=== PATIENT | female | born 1970 | race Caucasian/White ===

== ENCOUNTER 2023-08-12 16:56 | Inpatient (IN) | payer MEDICARE, OTHER ==
[~2023-08-12] VITALS: Ht 170.2 cm; Wt 161.5 kg
[2023-08-12 18:39] LABS: BASOPHILS % (AUTO) 0.5 % (0.0-2.0); EOSINOPHILS # (AUTO) 0.2 K/uL (0.0-0.7); EOSINOPHILS % (AUTO) 3.2 % (0.0-6.0); HEMATOCRIT 36 % (33-45); HEMOGLOBIN 11.9 g/dL (11.5-14.8); LYMPHOCYTES # (AUTO) 1.6 K/uL (0.8-4.8); MEAN CORPUSCULAR HEMOGLOBIN 27 PG (26.0-33.0); MEAN CORPUSCULAR HGB CONC 33 g/dl (31.0-36.0); MEAN CORPUSCULAR VOLUME 84 fL (82-100); MONOCYTES # (AUTO) 0.5 K/uL (0.1-1.30); MONOCYTES % (AUTO) 7.9 % (2.0-12.0); NEUTROPHILS # (AUTO) 4.4 K/uL (1.8-8.9); NEUTROPHILS % (AUTO) 65.4 % (43.0-81.0); PLATELET COUNT (AUTO) 221 K/uL (150-450); RED BLOOD CELL COUNT(AUTO) 4.33 MIL/uL (4.0-5.2); WHITE BLOOD COUNT (AUTO) 6.7 K/uL (4.3-11.0)
[2023-08-12 18:53] LABS: CALCIUM, SERUM 9.1 mg/dL (8.5-10.1); CARBON DIOXIDE 36 mmol/L (21-32); CHLORIDE 96 mmol/L (98-107); CREATININE 0.8 mg/dL (0.6-1.3); GLUCOSE 101 mg/dL (74-106); POTASSIUM 3.9 mmol/L (3.5-5.1); SODIUM SERUM 138 mmol/L (136-145); UREA NITROGEN, BLOOD 13 mg/dL (7-18)
[2023-08-12] MEDS ORDERED: LINA72CA PO (18:56)
[2023-08-12] MEDS ORDERED: DICL100G34 TP (18:56)
[2023-08-12] MEDS ORDERED: VENL75CA62 PO (18:56)
[2023-08-12] MEDS ORDERED: LIOT5TAB11 PO (18:56)
[2023-08-12] MEDS ORDERED: LORA-259 PO (18:56)
[2023-08-12] MEDS ORDERED: DOCU100C36 PO (18:56)
[2023-08-12] MEDS ORDERED: FLUT16SP NS (18:56)
[2023-08-12] MEDS ORDERED: BISA10SU11 RC (18:56)
[2023-08-12] MEDS ORDERED: BISA5TAB10 PO (18:56)
[2023-08-12] MEDS ORDERED: NA P133E RC (18:56)
[2023-08-12] MEDS ORDERED: BENZ1TAB7 PO (18:56)
[2023-08-12] MEDS ORDERED: CHOL500062 PO (18:56)
[2023-08-12] MEDS ORDERED: OMEG-167 PO (18:56)
[2023-08-12] MEDS ORDERED: BUPR2TAB3 SL (18:56)
[2023-08-12] MEDS ORDERED: IBUP-1955 PO (18:56)
[2023-08-12] MEDS ORDERED: ATOR40TA PO (18:56)
[2023-08-12] MEDS ORDERED: LEVO150T8 PO (18:56)
[2023-08-12] MEDS ORDERED: LACT10SO29 PO (18:56)
[2023-08-12] MEDS ORDERED: ACET325T53 PO (18:56)
[2023-08-12] MEDS ORDERED: MAGN400O6 PO (18:56)
[2023-08-12] MEDS ORDERED: DIPH50CA4 PO (18:56)
[2023-08-12] MEDS ORDERED: POLY15DR40 EACHEYE (18:56)
[2023-08-12] MEDS ORDERED: FURO40TA5 PO (18:56)
[2023-08-12] MEDS ORDERED: ESZO1TAB11 PO (18:56)
[2023-08-12] MEDS ORDERED: LIDO1ADH82 TP (18:56)
[2023-08-12] MEDS ORDERED: PANT40TA2 PO (18:57)
[2023-08-12] MEDS ORDERED: CARB50DR EACHEYE (18:57)
[2023-08-12] MEDS ORDERED: POTA-88 PO (18:57)
[2023-08-12] MEDS ORDERED: MUPI22OI7 MC (18:57)
[2023-08-12] MEDS ORDERED: OLAN5TAB3 PO (18:57)
[2023-08-12] MEDS ORDERED: NALT50TA PO (18:57)
[2023-08-12] MEDS ORDERED: QUET100T PO (18:57)
[2023-08-12] MEDS ORDERED: PREG-59 PO (18:57)
[2023-08-12] MEDS ORDERED: ALBU18HF2 IH (18:57)
[2023-08-12] MEDS ORDERED: SENN-261 PO (18:57)
[2023-08-12] MEDS ORDERED: PROP20TA7 PO (18:57)
[2023-08-12] MEDS ORDERED: TIZA4TAB5 PO (18:57)
[2023-08-12 18:58] LABS: ALANINE AMINOTRANSFERASE 20 U/L (12-78); ALBUMIN 3.6 g/dL (3.4-5.0); ALCOHOL, BLOOD < 3 mg/dL (0-10); ALKALINE PHOSPHATASE 136 U/L (46-116); ASPARTATE AMINOTRANSFERASE 12 U/L (15-37); BILIRUBIN,DIRECT 0.1 mg/dL (0.0-0.2); BILIRUBIN,TOTAL 0.2 mg/dL (0.2-1.0); SALICYLATE 3.2 mg/dL (2.8-20.0)
[2023-08-12 19:05] LABS: ACETAMINOPHEN 0 ug/ml (10-30)
[2023-08-12 19:56] LABS: APPEARANCE,URINE CLEAR (CLEAR); BILIRUBIN,URINE NEGATIVE (NEGATIVE); BLOOD, URINE NEGATIVE Ery/uL (NEGATIVE); COLOR,URINE YELLOW (YELLOW); KETONES,URINE NEGATIVE (NEGATIVE); LEUKOCYTE ESTERASE ,URINE NEGATIVE (NEGATIVE); NITRITE, URINE NEGATIVE (NEGATIVE); PROTEIN,URINE NEGATIVE (NEGATIVE); UGLUCOSE NEGATIVE (NEGATIVE); UROBILINOGEN,URINE 0.2 EU/dL (0.2)
[2023-08-12 20:10] LABS: AMPHETAMINE, URINE NEGATIVE (NEGATIVE); BARBITURATE, URINE NEGATIVE (NEGATIVE); BENZODIAZEPINE, URINE NEGATIVE (NEGATIVE); CANNABINOID, URINE NEGATIVE (NEGATIVE); COCCAINE, URINE NEGATIVE (NEGATIVE); OPIATE, URINE NEGATIVE (NEGATIVE); PHENCYCLIDINE SCREEN,URINE NEGATIVE (NEGATIVE)
[2023-08-12] MEDS ORDERED: ACETAMINOPHEN ES 500 MG TABLET ONE (21:20)
[2023-08-12] MEDS: ACETAMINOPHEN ES 500 MG TABLET PO ONE (21:23)
[2023-08-12] MEDS ORDERED: OLANZAPINE ZYDIS 5 MG TAB.RAPDIS ONE (23:59)
[2023-08-13] MEDS: OLANZAPINE 5 MG TABLET PO ONE (00:05)
[2023-08-13] MEDS: OLANZAPINE ZYDIS 5 MG TAB.RAPDIS PO ONE (00:05)
[2023-08-13] MEDS ORDERED: QUETIAPINE FUMARATE 100 MG TABLET ONE (01:13)
[2023-08-13] MEDS: QUETIAPINE FUMARATE 100 MG TABLET PO SCH ×2 (01:20→16:34)
[2023-08-13] MEDS ORDERED: MAG HYDROX/AL HYDROX/SIMETH 30 ML UDC PO PRN (16:00)
[2023-08-13] MEDS ORDERED: ALBUTEROL FS 2.5 MG/3 ML VIAL.NEB NEB PRN (16:00)
[2023-08-13] MEDS ORDERED: ACETAMINOPHEN 325 MG TABLET PO PRN (16:00)
[2023-08-13] MEDS ORDERED: Z GUARD REMEDY 4 OZ OINT TP PRN (16:00)
[2023-08-13] MEDS ORDERED: ONDANSETRON HCL/PF 4 MG/2 ML VIAL IVP PRN (16:00)
[2023-08-13 16:01] VITALS: BP 133/78; TEMP 98.3; O2SAT 100
[2023-08-13] MEDS: IV NS 0.9% 1,000 ML IV PRN (16:06)
[2023-08-13] MEDS: BENZTROPINE MESYLATE (1 MG) 1 MG TABLET PO SCH (16:33)
[2023-08-13] MEDS: SENNOSIDES 8.6 MG TABLET PO SCH (16:33)
[2023-08-13] MEDS: ENOXAPARIN SODIUM 40 MG/0.4 ML DISP.SYRIN SQ SCH (16:33)
[2023-08-13] MEDS: PREGABALIN 100 MG CAPSULE PO SCH (16:33)
[2023-08-13] MEDS: OXCARBAZEPINE 150 MG TABLET PO SCH (16:34)
[2023-08-13] MEDS: LIOTHYRONINE SODIUM (5 MCG/TA 5 MCG TABLET PO SCH (16:34)
[2023-08-13] MEDS ORDERED: BENZTROPINE MESYLATE (1 MG) 1 MG TABLET PO SCH (17:00)
[2023-08-13] MEDS ORDERED: QUETIAPINE FUMARATE 100 MG TABLET PO SCH (17:00)
[2023-08-13] MEDS: IBUPROFEN 600 MG TABLET PO PRN (17:16)
[2023-08-13 20:00] VITALS: BP 117/72; TEMP 99; O2SAT 99
[2023-08-13] MEDS ORDERED: OLANZAPINE 5 MG TABLET PO SCH (21:00)
[2023-08-13] MEDS: ATORVASTATIN 40 MG TABLET PO SCH (21:08)
[2023-08-13] MEDS: TIZANIDINE HCL 4 MG TABLET PO SCH (21:08)
[2023-08-13] MEDS: OLANZAPINE 5 MG TABLET PO SCH (21:09)
[2023-08-13] MEDS: LORAZEPAM 1 MG TABLET PO PRN (21:19)
[2023-08-13] MEDS ORDERED: TEMAZEPAM 7.5 MG CAPSULE ONE (23:43)
[2023-08-13] MEDS: TEMAZEPAM 15 MG CAPSULE PO PRN (23:57)
[2023-08-14 04:00] VITALS: BP 122/73; TEMP 98.4; O2SAT 96
[2023-08-14 07:14] LABS: BASOPHILS % (AUTO) 0.8 % (0.0-2.0); EOSINOPHILS # (AUTO) 0.2 K/uL (0.0-0.7); EOSINOPHILS % (AUTO) 3.7 % (0.0-6.0); HEMATOCRIT 34 % (33-45); HEMOGLOBIN 10.8 g/dL (11.5-14.8); LYMPHOCYTES # (AUTO) 1.5 K/uL (0.8-4.8); LYMPHOCYTES % (AUTO) 32.3 % (20.0-44.0); MEAN CORPUSCULAR HEMOGLOBIN 27 PG (26.0-33.0); MEAN CORPUSCULAR HGB CONC 32 g/dl (31.0-36.0); MEAN CORPUSCULAR VOLUME 85 fL (82-100); MONOCYTES # (AUTO) 0.5 K/uL (0.1-1.30); MONOCYTES % (AUTO) 10.6 % (2.0-12.0); NEUTROPHILS # (AUTO) 2.4 K/uL (1.8-8.9); NEUTROPHILS % (AUTO) 52.6 % (43.0-81.0); PLATELET COUNT (AUTO) 201 K/uL (150-450); RED BLOOD CELL COUNT(AUTO) 3.99 MIL/uL (4.0-5.2); RED CELL DISTRIBUTION WIDTH 17.4 % (11.5-15.0); WHITE BLOOD COUNT (AUTO) 4.7 K/uL (4.3-11.0)
[2023-08-14 07:30] LABS: CALCIUM, SERUM 8.9 mg/dL (8.5-10.1); CREATININE 0.8 mg/dL (0.6-1.3); MAGNESIUM 2.2 mg/dL (1.8-2.4); PHOSPHORUS 4.2 mg/dL (2.5-4.9); POTASSIUM 3.6 mmol/L (3.5-5.1)
[2023-08-14 08:00] VITALS: BP 123/60; TEMP 98.2; O2SAT 96
[2023-08-14] MEDS: PANTOPRAZOLE 40 MG TABLET.DR PO SCH (08:24)
[2023-08-14] MEDS ORDERED: VENLAFAXINE XR 75 MG CAP.SR.24H PO SCH (09:00)
[2023-08-14] MEDS: PROPRANOLOL HCL 10 MG TABLET PO SCH (09:49)
[2023-08-14] MEDS: MAGNESIUM HYDROXIDE 30 ML UDC PO ONE (10:29)
[2023-08-14 16:00] VITALS: BP 138/100; TEMP 98.1; O2SAT 96
[2023-08-14] MEDS ORDERED: HYDROCODONE/APAP 7.5/325MG 1 EACH TABLET PO PRN (16:00)
[2023-08-14] MEDS: LACTULOSE 10 G/15 ML UDC (PYXIS) PO SCH (16:07)
[2023-08-14 19:39] VITALS: O2SAT 93
[2023-08-15] VITALS: BP 122/64; TEMP 97.9; O2SAT 94
[2023-08-15] MEDS: TEMAZEPAM 7.5 MG CAPSULE PO PRN (00:01)
[2023-08-15 08:00] VITALS: BP 146/85; TEMP 97.7; O2SAT 97
[2023-08-15] MEDS: POLYVINYL ALCOHOL 15 ML BOTTLE EACHEYE PRN (08:29)
[2023-08-15] MEDS: HYDROCODONE/APAP 5/325MG TABLET PO PRN (12:37)
[2023-08-15] MEDS: FLUTICASONE PROPIONATE 16 GM BOTTLE NS PRN (12:53)
[2023-08-15 16:00] VITALS: BP 126/60; TEMP 97.5; O2SAT 97
[2023-08-15] MEDS: MAGNESIUM HYDROXIDE 30 ML UDC PO PRN (16:01)
[2023-08-15 18:11] VITALS: O2SAT 97
[2023-08-15 20:00] VITALS: BP 119/72; TEMP 98.2; O2SAT 97
[2023-08-15 20:11] VITALS: O2SAT 95
[2023-08-15] MEDS: BISACODYL (5 MG) 5 MG TABLET.DR PO PRN (22:20)
[2023-08-16] MEDS: LORAZEPAM INJ 2 MG/ML VIAL IV ONE (00:34)
[2023-08-16 04:00] VITALS: BP 120/78; TEMP 97.9; O2SAT 95
[2023-08-16] MEDS ORDERED: LIDOCAINE 1%-EPI 1:100,000 20 ML VIAL ONE (07:05)
[2023-08-16] MEDS ORDERED: BUPIVACAINE 0.5 % PF 150 MG/30 ML VIAL ONE (07:05)
[2023-08-16] MEDS ORDERED: ANESTHESIA TRAY IN PYXIS 1 EA TRAY MC ONE ×2 (07:05→11:52)
[2023-08-16] MEDS ORDERED: BACITRACIN ZINC OINT (15 GM) 15 GM TUBE TP ONE (07:05)
[2023-08-16 07:07] LABS: INR 0.97 (0.91-1.10); PARTIAL THROMBOPLASTIN TIME 34.3 SEC (24.3-34.3); PROTHROMBIN TIME 10.3 SECS (9.2-11.1)
[2023-08-16] MEDS ORDERED: MIDAZOLAM HCL 2 MG/2ML VIAL ONE (08:00)
[2023-08-16] MEDS ORDERED: FENTANYL PF 250MCG/5ML AMPUL ONE (08:00)
[2023-08-16] MEDS ORDERED: VASOPRESSIN INJ 20 UNIT/ML VIAL ONE (08:01)
[2023-08-16] MEDS ORDERED: ROCURONIUM BROMIDE 50 MG/5 ML ONE (08:01)
[2023-08-16 08:10] LABS: CALCIUM, SERUM 8.7 mg/dL (8.5-10.1); CREATININE 0.8 mg/dL (0.6-1.3); POTASSIUM 3.7 mmol/L (3.5-5.1)
[2023-08-16] MEDS ORDERED: SEVOFLURANE 250 ML BOTTLE IH ONE (08:44)
[2023-08-16] MEDS ORDERED: TRANEXAMIC ACID 1,000 MG/10 ML VIAL ONE (09:01)
[2023-08-16 09:31] LABS: BASOPHILS % (AUTO) 0.5 % (0.0-2.0); EOSINOPHILS # (AUTO) 0.2 K/uL (0.0-0.7); EOSINOPHILS % (AUTO) 4.2 % (0.0-6.0); HEMATOCRIT 31 % (33-45); LYMPHOCYTES # (AUTO) 1.2 K/uL (0.8-4.8); LYMPHOCYTES % (AUTO) 26.2 % (20.0-44.0); MEAN CORPUSCULAR HEMOGLOBIN 27 PG (26.0-33.0); MEAN CORPUSCULAR HGB CONC 32 g/dl (31.0-36.0); MEAN CORPUSCULAR VOLUME 85 fL (82-100); MONOCYTES # (AUTO) 0.5 K/uL (0.1-1.30); MONOCYTES % (AUTO) 11.3 % (2.0-12.0); NEUTROPHILS # (AUTO) 2.6 K/uL (1.8-8.9); NEUTROPHILS % (AUTO) 57.8 % (43.0-81.0); PLATELET COUNT (AUTO) 178 K/uL (150-450); RED BLOOD CELL COUNT(AUTO) 3.69 MIL/uL (4.0-5.2); RED CELL DISTRIBUTION WIDTH 17.6 % (11.5-15.0); WHITE BLOOD COUNT (AUTO) 4.5 K/uL (4.3-11.0)
[2023-08-16] MEDS ORDERED: ALBUTEROL FS 2.5 MG/3 ML VIAL.NEB ONE (10:34)
[2023-08-16 12:00] VITALS: BP 156/81; TEMP 98.1; O2SAT 95
[2023-08-16] MEDS: ACETAMINOPHEN 325 MG TABLET PO SCH (12:12)
[2023-08-16] MEDS: CELECOXIB 100 MG CAPSULE PO SCH (12:12)
[2023-08-16] MEDS: GABAPENTIN 300 MG CAPSULE PO SCH (12:12)
[2023-08-16] MEDS: IV LR 1000 ML 1,000 ML IV PRN (13:52)
[2023-08-16] MEDS ORDERED: SILVER NITRATE APPLICATOR 1 EA BOX TP ONE (17:30)
[2023-08-16 17:47] VITALS: O2SAT 96
[2023-08-16 20:00] VITALS: BP 108/72; TEMP 98.6; O2SAT 97
[2023-08-16 20:08] VITALS: O2SAT 96
[2023-08-17 04:00] VITALS: BP 120/60; TEMP 98.3; O2SAT 100
[2023-08-17 11:42] LABS: BASOPHILS % (AUTO) 0.2 % (0.0-2.0); EOSINOPHILS # (AUTO) 0.1 K/uL (0.0-0.7); EOSINOPHILS % (AUTO) 1.6 % (0.0-6.0); HEMATOCRIT 31 % (33-45); LYMPHOCYTES # (AUTO) 1.5 K/uL (0.8-4.8); LYMPHOCYTES % (AUTO) 21.6 % (20.0-44.0); MEAN CORPUSCULAR HEMOGLOBIN 27 PG (26.0-33.0); MEAN CORPUSCULAR HGB CONC 32 g/dl (31.0-36.0); MEAN CORPUSCULAR VOLUME 85 fL (82-100); MONOCYTES # (AUTO) 0.8 K/uL (0.1-1.30); MONOCYTES % (AUTO) 12.3 % (2.0-12.0); NEUTROPHILS # (AUTO) 4.4 K/uL (1.8-8.9); NEUTROPHILS % (AUTO) 64.3 % (43.0-81.0); PLATELET COUNT (AUTO) 182 K/uL (150-450); RED BLOOD CELL COUNT(AUTO) 3.64 MIL/uL (4.0-5.2); RED CELL DISTRIBUTION WIDTH 17.5 % (11.5-15.0); WHITE BLOOD COUNT (AUTO) 6.9 K/uL (4.3-11.0)
[2023-08-17 11:50] LABS: CALCIUM, SERUM 9.2 mg/dL (8.5-10.1); CREATININE 0.7 mg/dL (0.6-1.3); POTASSIUM 4.1 mmol/L (3.5-5.1)
[2023-08-17 11:56] LABS: ALBUMIN 3.2 g/dL (3.4-5.0); BILIRUBIN,TOTAL 0.3 mg/dL (0.2-1.0); TOTAL PROTEIN, SERUM 7.1 g/dL (6.4-8.2)
[2023-08-17 16:00] VITALS: BP 104/59; TEMP 97.3; O2SAT 100
[2023-08-17 17:39] VITALS: O2SAT 96
[2023-08-17 19:44] VITALS: O2SAT 96
[2023-08-17 20:00] VITALS: BP 114/75; TEMP 97.7; O2SAT 96
[2023-08-18 04:00] VITALS: BP 123/63; TEMP 98.5; O2SAT 94
[2023-08-18 04:17] VITALS: O2SAT 97
[2023-08-18 07:09] LABS: BASOPHILS % (AUTO) 0.4 % (0.0-2.0); EOSINOPHILS # (AUTO) 0.2 K/uL (0.0-0.7); EOSINOPHILS % (AUTO) 3.5 % (0.0-6.0); HEMATOCRIT 31 % (33-45); HEMOGLOBIN 9.9 g/dL (11.5-14.8); LYMPHOCYTES # (AUTO) 1.4 K/uL (0.8-4.8); LYMPHOCYTES % (AUTO) 24.2 % (20.0-44.0); MEAN CORPUSCULAR HEMOGLOBIN 27 PG (26.0-33.0); MEAN CORPUSCULAR HGB CONC 32 g/dl (31.0-36.0); MEAN CORPUSCULAR VOLUME 86 fL (82-100); MONOCYTES # (AUTO) 0.7 K/uL (0.1-1.30); MONOCYTES % (AUTO) 12.6 % (2.0-12.0); NEUTROPHILS # (AUTO) 3.5 K/uL (1.8-8.9); NEUTROPHILS % (AUTO) 59.3 % (43.0-81.0); PLATELET COUNT (AUTO) 155 K/uL (150-450); RED BLOOD CELL COUNT(AUTO) 3.64 MIL/uL (4.0-5.2); RED CELL DISTRIBUTION WIDTH 17.4 % (11.5-15.0); WHITE BLOOD COUNT (AUTO) 5.8 K/uL (4.3-11.0)
[2023-08-18 07:52] LABS: ALBUMIN 2.8 g/dL (3.4-5.0); BILIRUBIN,TOTAL 0.2 mg/dL (0.2-1.0); CALCIUM, SERUM 9.4 mg/dL (8.5-10.1); CREATININE 0.7 mg/dL (0.6-1.3); POTASSIUM 4.1 mmol/L (3.5-5.1); TOTAL PROTEIN, SERUM 6.7 g/dL (6.4-8.2)
[2023-08-18] MEDS ORDERED: oxyCODONE IR immediate release 5 MG TABLET PO PRN ×2 (11:00)
[2023-08-18] MEDS: MORPHINE SULFATE INJ 2 MG/ML DISP.SYRIN IV PRN (12:54)
[2023-08-18] MEDS: GABAPENTIN 300 MG CAPSULE PO SCH (12:56)
[2023-08-18 16:00] VITALS: BP 103/75; TEMP 97.3; O2SAT 97
[2023-08-18] MEDS: OXCARBAZEPINE 150 MG TABLET PO SCH (16:03)
[2023-08-18] MEDS: risperiDONE 1 MG TABLET PO SCH (16:03)
[2023-08-18] MEDS: oxyCODONE IR immediate release 5 MG TABLET PO PRN (17:48)
[2023-08-18 20:00] VITALS: BP 122/61; TEMP 98.2; O2SAT 97
[2023-08-18 20:07] VITALS: O2SAT 97
[2023-08-18] MEDS: MAGNESIUM HYDROXIDE 30 ML UDC PO SCH (21:19)
[2023-08-19 04:00] VITALS: BP 122/72; TEMP 98.5; O2SAT 99
[2023-08-19 07:25] VITALS: O2SAT 96
[2023-08-19 08:00] VITALS: BP 149/91; TEMP 98.5; O2SAT 99
[2023-08-19 08:11] LABS: BASOPHILS % (AUTO) 0.6 % (0.0-2.0); EOSINOPHILS # (AUTO) 0.2 K/uL (0.0-0.7); EOSINOPHILS % (AUTO) 4.6 % (0.0-6.0); HEMATOCRIT 31 % (33-45); HEMOGLOBIN 10.1 g/dL (11.5-14.8); LYMPHOCYTES # (AUTO) 1.3 K/uL (0.8-4.8); MEAN CORPUSCULAR HEMOGLOBIN 28 PG (26.0-33.0); MEAN CORPUSCULAR HGB CONC 32 g/dl (31.0-36.0); MEAN CORPUSCULAR VOLUME 86 fL (82-100); MONOCYTES # (AUTO) 0.4 K/uL (0.1-1.30); MONOCYTES % (AUTO) 9.6 % (2.0-12.0); NEUTROPHILS # (AUTO) 2.5 K/uL (1.8-8.9); NEUTROPHILS % (AUTO) 56.2 % (43.0-81.0); PLATELET COUNT (AUTO) 163 K/uL (150-450); RED BLOOD CELL COUNT(AUTO) 3.66 MIL/uL (4.0-5.2); RED CELL DISTRIBUTION WIDTH 17.4 % (11.5-15.0); WHITE BLOOD COUNT (AUTO) 4.4 K/uL (4.3-11.0)
[2023-08-19 09:01] LABS: CREATININE 0.8 mg/dL (0.6-1.3); MAGNESIUM 2.4 mg/dL (1.8-2.4); PHOSPHORUS 4.5 mg/dL (2.5-4.9); POTASSIUM 3.6 mmol/L (3.5-5.1)
[2023-08-19] MEDS ORDERED: CELE100C PO (11:09)
[2023-08-19] MEDS ORDERED: GABA300C PO (11:09)
[2023-08-19] MEDS ORDERED: RISP1TAB7 PO (11:09)
[2023-08-19] MEDS ORDERED: OXCA150T13 PO (11:09)
[2023-08-19] MEDS ORDERED: OXYC5CAP18 PO (11:09)
[2023-08-19] MEDS ORDERED: ENOX40DI SQ (11:09)
[2023-08-19] MEDS: NA PHOS,M-B/NA PHOS,DI-BA 1 EA ENEMA RC PRN (12:43)
[2023-08-19] MEDS: BISACODYL SUPP (10 MG) 10 MG/SUPP.RECT SUPP.RECT RC PRN (13:26)
[2023-08-19] MEDS: oxyCODONE IR immediate release 5 MG TABLET PO PRN (14:30)
[2023-08-19 16:00] VITALS: BP 127/78; TEMP 98.5; O2SAT 99
== END 2023-08-19 16:59 | DRG 336 ==
LOC: ER 16:58 → MEDSG1 08-13 14:19
PROVIDERS: ADMIT Nurse Practitioner Acute Care; ATTEND Student in an Organized Health Care Education/Training Program
PROC: 05HF33Z Insertion of Infusion Device into Left Cephalic Vein, Percutaneous Approach (ICD-10-PCS; principal; 2023-08-14)
PROC: B54NZZA Ultrasonography of Left Upper Extremity Veins, Guidance (ICD-10-PCS; 2023-08-14)
PROC: 0DNU0ZZ Release Omentum, Open Approach (ICD-10-PCS; 2023-08-16)
PROC: 0WUF0JZ Supplement Abdominal Wall with Synthetic Substitute, Open Approach (ICD-10-PCS; 2023-08-16)
PROC: 0DBU0ZZ Excision of Omentum, Open Approach (ICD-10-PCS; 2023-08-16)
DX: K43.6 Other and unspecified ventral hernia with obstruction, without gangrene (principal); D68.69 Other thrombophilia; F33.9 Major depressive disorder, recurrent, unspecified; L03.115 Cellulitis of right lower limb; Z68.43 Body mass index [BMI] 50.0-59.9, adult; R45.851 Suicidal ideations; E86.0 Dehydration; K21.00 Gastro-esophageal reflux disease with esophagitis, without bleeding; G40.909 Epilepsy, unspecified, not intractable, without status epilepticus; D64.9 Anemia, unspecified; E03.9 Hypothyroidism, unspecified; E11.42 Type 2 diabetes mellitus with diabetic polyneuropathy; E78.5 Hyperlipidemia, unspecified; F20.9 Schizophrenia, unspecified; G89.4 Chronic pain syndrome; I10 Essential (primary) hypertension; J44.9 Chronic obstructive pulmonary disease, unspecified; M79.7 Fibromyalgia; F41.9 Anxiety disorder, unspecified; G47.33 Obstructive sleep apnea (adult) (pediatric); E66.01 Morbid (severe) obesity due to excess calories; Z20.822 Contact with and (suspected) exposure to COVID-19; F39 Unspecified mood [affective] disorder; K21.9 Gastro-esophageal reflux disease without esophagitis; I87.2 Venous insufficiency (chronic) (peripheral); M25.511 Pain in right shoulder; Z79.899 Other long term (current) drug therapy; Z96.612 Presence of left artificial shoulder joint; K66.0 Peritoneal adhesions (postprocedural) (postinfection)
CPT/HCPCS: 36410; 36415; 71045-TC; 73030-TC; 80048-TC; 80053-TC; 80061-TC; 80076-TC; 82962-TC; 83735-TC; 84100-TC; 84702-TC; 85025-TC; 85730-TC; 86850-TC; 87081-TC; 93307-TC; 94762-TC; 94799-TC; 97110-TC; 97530-TC; A4223; C1781; G0378; G0480; J0330; J0690; J1100; J1650; J2060; J2250; J2270; J2405; J2704; J3010; J3490; J7030; J7120